=== PATIENT | female | born 1995 | race Caucasian/White ===

== ENCOUNTER 2017-12-02 19:45 | Outpatient (CLI) | payer OTHER ==
[2017-12-02 20:30] VITALS: BP 131/72; PULSE 70; RESP 16; TEMP 97.2
--- NOTE | 2017-12-03 11:28 | P.MSEPDOC ---
Presenting Problems - Arrival Data Date of Arrival on Unit: 12/02/17 Time of Arrival on Unit: 19:45 Mode of Transport: Ambulatory - Complaint OB-Reason for Admission/Chief Complaint: Decreased Movement Medical History - Information : 3 Para: 2 Term: 2 : 0 Abortions: Spontaneous or Elective: 0 Number of Living Children: 2 - Gestational Age Gestational Age by BASIA (wks/days): 33 Weeks and 0 Days - History Complications: Smoker Review of Systems - Review of Systems Constitutional: No problems Breast: No problems ENT: No problems Cardiovascular: No problems Respiratory: No problems Gastrointestinal: No problems Genitourinary: No problems Musculoskeletal: No problems Neurological: No problems Skin: No problems Vital Signs - Temperature Temperature: 97.2 F Temperature Source: Temporal Artery Scan - Pulse Right Pulse Rate: 70 Pulse Assessment Method: Pulse Oximetry - Respirations Respiratory Rate: 16 Oxygen Delivery Method: Room Air - Blood Pressure Right Arm Blood Pressure: 131/72 Blood Pressure Mean: 91 Blood Pressure Source: Automatic Cuff Medical Screen Scoring (Pre) - Cervical Exam Dilation: Exam Deferred Effacement: Exam Deferred Membranes: Intact - Uterine Contractions Frequency: N/A Duration: N/A Intensity: N/A - Maternal Vital Signs Maternal Temperature: N/A Maternal Blood Pressure: N/A Signs of Preeclampsia: N/A Maternal Respirations: N/A - Pain Assessment Pain Scale Used: Numeric (1 - 10) Pain Intensity: 0 Pain Management Goal: 0 Pain Behavior: Vocalization - Maternal Trauma Maternal Trauma: N/A - Assessment Baseline FHR: 125 Heart Rate - NICHD Category: Category I (Normal) = 0 NST: Reactive Position: N/A Station: N/A - Total Score Total Score (Pre): 0 - Level of Risk Level of Risk: Low (0-5) Physician Notification (Pre) - Physician Notified Physician Notified Date: 12/02/17 Physician Notified Time: 20:11 Physician/Practitioner Notifed:: Dr. Dennis Spoke With: Dr. Dennis New Order Received: Yes (Discharge home with instructions.) - Notification Comment Comment: Pt cleared for discharge home at this time with instructions. Pt to keep next appointment with Dr. Lock in office and to return with any concerns. Pt verbalizes understanding. Medical Screen Scoring (Post) - Cervical Exam Dilation: Exam Deferred Effacement: Exam Deferred Membranes: Intact - Uterine Contractions Frequency: N/A Duration: N/A Intensity: N/A - Maternal Vital Signs Maternal Temperature: N/A Maternal Blood Pressure: N/A Signs of Preeclampsia: N/A Maternal Respirations: N/A - Pain Assessment Pain Scale Used: Numeric (1 - 10) Pain Intensity: 0 Pain Management Goal: 0 Pain Behavior: Vocalization - Maternal Trauma Maternal Trauma: N/A - Assessment Heart Rate: 125 Heart Rate - NICHD Category: Category I (Normal) = 0 NST: Reactive Position: N/A Station: N/A - Total Score Total Score (Post): 0 - Post Treatment Level of Risk Post Treatment Level of Risk: Low (0-5) Physician Notification (Post) - Physician Notified Physician Notified Date: 12/02/17 Physician Notified Time: 20:11 Physician/Practitioner Notified:: Dr. Dennis Spoke With: Dr. Dennis New Order Received: Yes (Discharge home with instructions.) Disposition - Disposition OB Disposition: Discharge to home Discharge Date: 12/02/17 Discharge Time: 20:12 I agree with the RN Medical Screening Exam: Yes Risk & Benefit of care provided described in d/c instruction: Yes Diagnosis: DECREASED MOVEMENTS, THIRD TRIMESTER, FETUS 1
== END 2017-12-02 20:12 | disposition home or self-care (01) ==
LOC: FBPOP 19:45
PROVIDERS: ATTEND Obstetrics & Gynecology
DX: O36.8130 Decreased fetal movements, third trimester, not applicable or unspecified (principal); Z3A.33 33 weeks gestation of pregnancy
CPT/HCPCS: 59025; G0463; 99213

== ENCOUNTER 2018-01-13 05:35 | Inpatient (IN) | payer OTHER ==
[2018-01-13] MEDS ORDERED: CARBOPROST TROMETHAMINE 250 MCG/ML 1 ML AMP IM PRN (05:55)
[2018-01-13] MEDS ORDERED: LIDOCAINE 1% (PF) 10 MG/ML (30 ML SDV) SQ PRN (05:55)
[2018-01-13] MEDS ORDERED: METHYLERGONOVINE 0.2 MG/ML 1 ML AMP IM PRN (05:55)
[2018-01-13] MEDS ORDERED: TERBUTALINE 1 MG/ML VIAL SQ PRN (05:55)
[2018-01-13] MEDS ORDERED: OXYTOCIN 10 UNIT/ML 1 ML VIAL IM PRN (05:55)
[2018-01-13] MEDS ORDERED: LACTATED RINGERS 1,000 ML IV SCH (06:00)
[2018-01-13] MEDS ORDERED: OXYTOCIN 20 UNITS/1000 ML NS 1,000 ML IV SCH ×2 (06:00→09:00)
[2018-01-13 06:12] LABS: Basophils % (A) 0 %; Eosinophils # (A) 0.1 k/uL (0-0.7); Eosinophils % (A) 1 %; HCT 40.7 % (34.0-46.0); HGB 13.8 gm/dL (11.4-16.0); Lymphocytes # (A) 2.7 k/uL (1.0-4.8); Lymphocytes % (A) 27 %; MCH 31.5 pg (25.0-35.0); MCV 92.6 fL (80.0-100.0); Mean Platelet Volume 9.2; Monocytes # (A) 0.5 k/uL (0-1.0); Monocytes % (A) 5 %; Neutrophils # (A) 6.7 k/uL (1.3-7.7); Neutrophils % (A) 66 %; Platelet Count 129 k/uL (150-450); RBC 4.39 m/uL (3.80-5.40); RDW 13.2 % (11.5-15.5); WBC 10.2 k/uL (3.8-10.6)
[2018-01-13] MEDS: LACTATED RINGERS 1,000 ML IV SCH ×2 (06:27→07:12)
[2018-01-13] MEDS ORDERED: BUPIVACAINE (PF) 0.25% 30 ML VIAL ONE (06:31)
[2018-01-13] MEDS ORDERED: fentaNYL (PF) 50 MCG/ML 5 ML AMP ONE (06:31)
[2018-01-13] MEDS ORDERED: SODIUM CHLORIDE 0.9% 100 ML BAG ONE (06:31)
--- NOTE | 2018-01-13 07:10 | P.HPOB ---
History of Present Illness H&P Date: 01/13/18 Chief Complaint: Labor at 39 weeks This is a 22-year-old 3 para 2002 woman who has an estimated due date of 01/20/2018 based on LMP consistent with a 21 week ultrasound. She presents at 39-0/7 weeks gestation in spontaneous active labor. She's had an uncomplicated . On admission she is noted to be 6+ centimeters dilated. She denied leakage of fluid or vaginal bleeding. Obstetric history: Normal spontaneous vaginal deliveries at term in 2014 and 2011. Laboratory data: Group B strep negative, blood type A-, antibody screen negative , rubella immune, VDRL nonreactive, hepatitis B surface antigen negative, HIV negative Review of Systems All systems: negative Past Medical History Past Medical History: No Reported History History of Any Multi-Drug Resistant Organisms: None Reported Past Surgical History: No Surgical Hx Reported Past Anesthesia/Blood Transfusion Reactions: No Reported Reaction Past Psychological History: Anxiety Smoking Status: Current every day smoker Past Alcohol Use History: None Reported Past Drug Use History: None Reported - Past Family History Father Family Medical History: Cancer, Diabetes Mellitus Additional Family Medical History / Comment(s): bladder cancer Medications and Allergies Home Medications Medication Instructions Recorded Confirmed Type Pnv No.111/Iron/Folate/Dha 1 each PO DAILY 12/02/17 01/13/18 History [Nestabs One Softgel] Allergies Allergy/AdvReac Type Severity Reaction Status Date / Time No Known Allergies Allergy Verified 01/13/18 05:42 Exam - Vital Signs Vital signs: Vital Signs Temp Pulse Resp BP Pulse Ox 01/13/18 05:57 97.5 F L 91 18 128/72 98 01/13/18 05:42 97.5 F L 84 16 99 Intake and Output 01/12/18 01/13/18 01/13/18 22:59 06:59 14:59 Intake Total 1000 Balance 1000 Intake: IV 1000 Lactated Ringers 1,000 ml 1000 @ 999 mls/hr IV .Q1H1M [facility] Rx#:[id number] Other: # Voids 1 Weight 68.039 kg Targeted physical exam is performed. This is a visibly gravid, actively laboring female. She recently had an epidural anesthetic placed. On the abdomen is gravid with palpable contractions. On cervical exam she is 6 cm dilated, 90% effaced and the vertex is in the -2 station. Artificial rupture of membranes is undertaken and meconium-stained fluid is noted. heart tones show some decreased variability, no repetitive decelerations. Occasional accelerations. She is jack on irregularly every 2-5 minutes. Results Result Diagrams: 01/13/18 06:00 Abnormal Lab Results - Last 24 Hours (Table) 01/13/18 Range/Units 06:00 Plt Count 129 L (150-450) k/uL Assessment and Plan (1) 39 weeks gestation of Current Visit: Yes Status: Acute Code(s): Z3A.39 - 39 WEEKS GESTATION OF SNOMED Code(s): 89967836 (2) Rh negative, maternal Current Visit: Yes Status: Acute Code(s): O09.899 - SUPERVISION OF OTHER HIGH RISK PREGNANCIES, UNSP TRIMESTER; Z67.91 - UNSPECIFIED BLOOD TYPE, RH NEGATIVE SNOMED Code(s): 312451155 (3) Meconium in amniotic fluid Current Visit: Yes Status: Acute Code(s): P96.83 - MECONIUM STAINING SNOMED Code(s): 9482860 (4) Spontaneous onset of labor Current Visit: Yes Status: Acute Code(s): OQK7155 - SNOMED Code(s): 13919405 Plan: 22-year-old 3 para 2 woman who presents at 39-0/7 weeks gestation in spontaneous active labor. She has meconium-stained fluid. status is overall reassuring at this time. On she is group B strep negative and Rh-. Anticipate normal spontaneous vaginal delivery.
[2018-01-13] MEDS ORDERED: BUPIVACAINE (PF) 0.25% 25 ML, fentaNYL (PF) 200 MCG in SODIUM CHLORIDE 0.9% 71 ML EPIDURAL ONE (07:17)
[2018-01-13] MEDS ORDERED: SIMETHICONE 80 MG CHEWABLE PO PRN (08:51)
[2018-01-13] MEDS ORDERED: ACETAMINOPHEN TAB 325 MG TAB PO PRN (08:51)
[2018-01-13] MEDS ORDERED: diphenhydrAMINE 50 MG/ML 1 ML VIAL IVP PRN ×2 (08:51)
[2018-01-13] MEDS ORDERED: ZOLPIDEM 5 MG TAB PO PRN (08:51)
[2018-01-13] MEDS ORDERED: diphenhydrAMINE 50 MG CAP PO PRN (08:51)
[2018-01-13] MEDS ORDERED: diphenhydrAMINE 25 MG CAP PO PRN (08:51)
[2018-01-13] MEDS ORDERED: HYDROCORTISONE 2.5% RECTAL CREAM 30 GM TUBE RECTAL PRN (08:51)
[2018-01-13] MEDS ORDERED: WITCH HAZEL 1 EACH MED..PAD TOPICAL PRN (08:51)
[2018-01-13] MEDS ORDERED: BENZOCAINE/MENTHOL SPRAY 1 GM/SPRAY AEROSOL TOPICAL PRN (08:51)
[2018-01-13] MEDS ORDERED: LANOLIN CREAM 5 GM TUBE TOPICAL PRN (08:51)
--- NOTE | 2018-01-13 08:51 | P.PROBDLV ---
Vaginal Delivery Note - . Vaginal Delivery Note: Findings: Female in the left occiput anterior position with Apgars of 9 at 1 minute and 9 at 5 minutes weighing 8 lbs. 6 oz., 3790 g. First-degree perineal laceration. Meconium-stained fluid. Intact, three-vessel cord placenta with meconium staining of the membranes. EBL approximately 200 mL's. Delivery summary: This is a 22-year-old 3 para 2 woman who presented in spontaneous active labor at 39-0/7 weeks gestation. On admission she received an epidural anesthetic and had artificial rupture of membranes at which time meconium-stained fluid was noted. She had overall reassuring heart rate pattern throughout the first stage of labor. She had approximately 4 hour first stage of labor. She reached complete cervical dilation and pushed effectively. When she had pushed to she was repositioned, prepped and draped in the dorsal modified Jerrod position. She had an approximately 20 minute second stage of labor. With additional maternal effort the head crowned from the left occiput anterior position. The nose and mouth were bulb suctioned on the perineum. The anterior followed by the posterior shoulders were delivered without difficulty and the rest the infant was delivered onto the field. The infant was placed on the maternal abdomen where the cord was clamped and cut. Apgars were 9 at 1 minute and 9 at 5 minutes. Cord blood sample was taken for maternal Rh- status. An intact, three-vessel cord placenta was expressed after an approximately 4 minute third stage of labor. The placenta was noted to be meconium-stained. The perineum was inspected and a first-degree laceration was noted. This was infused with lidocaine and repaired with 3-0 Vicryl suture in the usual fashion. The uterus was massaged and was noted to be firm below the level of the umbilicus. All counts were correct. Both mother and were doing well post delivery in the room.
[2018-01-13] MEDS: IBUPROFEN 600 MG TAB PO PRN (19:11)
[2018-01-13] MEDS: SENNOSIDES-DOCUSATE SODIUM 1 EACH TAB PO SCH (20:05)
[2018-01-14] MEDS: IBUPROFEN 600 MG TAB PO PRN (06:47)
[2018-01-14 08:57] VITALS: BP 115/62; PULSE 95; RESP 16; TEMP 98.2
--- NOTE | 2018-01-14 09:41 | P.DS ---
Providers Date of admission: 01/13/18 05:43 Expected date of discharge: 01/14/18 Attending physician: Sunil Lock Primary care physician: Stated None - Discharge Diagnosis(es) (1) 39 weeks gestation of Current Visit: Yes Status: Acute (2) Rh negative, maternal Current Visit: Yes Status: Acute (3) Meconium in amniotic fluid Current Visit: Yes Status: Acute (4) Spontaneous onset of labor Current Visit: Yes Status: Acute (5) Normal spontaneous vaginal delivery Current Visit: Yes Status: Acute (6) Perineal laceration with delivery, first degree Current Visit: Yes Status: Acute Hospital Course: This is a 22-year-old 3 now para 3 woman who presented at 39-0/7 weeks gestation in spontaneous active labor. Following admission she received an epidural anesthetic. She went on to have a uncomplicated delivery of a liveborn female infant with Apgars of 9 at 1 minute and 9 at 5 minutes weighing 8 lbs. 6 oz. She did have meconium-stained fluid. Her course was unremarkable. By day #1 she was ambulating and voiding without difficulty, her lochia was decreasing and her physical exam was within normal limits. She was therefore discharged home with routine instructions for care and follow-up. She received Heath prior to discharge if indicated. Patient Condition at Discharge: Good Plan - Discharge Summary New Discharge Prescriptions: No Action Pnv No.111/Iron/Folate/Dha [Nestabs One Softgel] 1 each PO DAILY Discharge Medication List Pnv No.111/Iron/Folate/Dha [Nestabs One Softgel] 1 each PO DAILY 12/02/17 [ History] Follow up Appointment(s)/Referral(s): Sunil Lock MD [STAFF PHYSICIAN] - 6 Weeks Activity/Diet/Wound Care/Special Instructions: Follow-up in the office in 6 weeks . Call with any concerning signs or symptoms including heavy vaginal bleeding, severe abdominal pain, fever greater than 101, swelling or redness of the lower extremities, foul vaginal discharge, or signs of depression. Nothing in the vagina for 6 weeks after delivery, specifically no intercourse.
[2018-01-14] MEDS: SENNOSIDES-DOCUSATE SODIUM 1 EACH TAB PO SCH (16:45)
== END 2018-01-14 11:00 | disposition home or self-care (01) | DRG 775 ==
LOC: FBPOP 05:35 → 4FBP 05:43
PROVIDERS: ADMIT Obstetrics & Gynecology; ATTEND Obstetrics & Gynecology
PROC: 10E0XZZ Delivery of Products of Conception, External Approach (ICD-10-PCS; principal; 2018-01-13)
PROC: 10907ZC Drainage of Amniotic Fluid, Therapeutic from Products of Conception, Via Natural or Artificial Opening (ICD-10-PCS; principal; 2018-01-13)
PROC: 0HQ9XZZ Repair Perineum Skin, External Approach (ICD-10-PCS; principal; 2018-01-13)
PROC: 3E0R3NZ Introduction of Analgesics, Hypnotics, Sedatives into Spinal Canal, Percutaneous Approach (ICD-10-PCS; principal; 2018-01-13)
PROC: 00HU33Z Insertion of Infusion Device into Spinal Canal, Percutaneous Approach (ICD-10-PCS; principal; 2018-01-13)
DX: O99.334 Smoking (tobacco) complicating childbirth (principal); O36.0930 Maternal care for other rhesus isoimmunization, third trimester, not applicable or unspecified; Z37.0 Single live birth; F17.200 Nicotine dependence, unspecified, uncomplicated; O77.0 Labor and delivery complicated by meconium in amniotic fluid; O70.0 First degree perineal laceration during delivery; Z3A.39 39 weeks gestation of pregnancy
CPT/HCPCS: 85025; 88307; 99213

== ENCOUNTER → 2019-01-04 | Outpatient (CLI) | payer OTHER ==
--- NOTE | 2019-01-04 14:58 | XR ---
EXAMINATION TYPE: XR hand limited LT DATE OF EXAM: 01/04/2019 COMPARISON: None HISTORY: Pain first metacarpal TECHNIQUE: Left hand is examined in 2 projections. FINDINGS: No acute fractures are evident. Soft tissues are normal. Joint spaces are preserved. Follow-up exam can be performed 7-10 days from acute trauma for continued pain. IMPRESSION: 1. Normal 2 view left hand.
== END | disposition home or self-care (01) ==
LOC: RADXRMAIN 10:31
PROVIDERS: ATTEND Physician Assistant
DX: M79.642 Pain in left hand (principal)

== ENCOUNTER → 2020-05-13 | Outpatient (CLI) | payer OTHER ==
--- NOTE | 2020-05-13 15:56 | XR ---
EXAMINATION TYPE: XR lumbar spine 2 or 3V DATE OF EXAM: 05/13/2020 Comparison: None Clinical History: 24-year-old female left leg weakness, M62.81 Findings: There is rightward truncal shift. There is a left L5 hemisacralization with a degenerative assimilati on joint with the sacrum. Vertebral body heights are preserved and alignment is maintained. Mild face t arthropathy suggested in the lower lumbar spine. Disc interspaces are maintained. Impression: 1. 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 Note that this can become a source of annika n for the patient and can also contribute to accelerated degenerative disc disease above at L4-L5. 2. Mild facet arthropathy lower lumbar spine.
== END | disposition home or self-care (01) ==
LOC: RAD 14:53
PROVIDERS: ATTEND Family Medicine
DX: M51.36 Other intervertebral disc degeneration, lumbar region (principal); M46.96 Unspecified inflammatory spondylopathy, lumbar region; M62.81 Muscle weakness (generalized)
CPT/HCPCS: 72100

== ENCOUNTER → 2020-11-02 | Outpatient (CLI) | payer OTHER ==
--- NOTE | 2020-11-02 08:59 | US ---
EXAMINATION TYPE: US abdomen complete DATE OF EXAM: 11/02/2020 COMPARISON: NONE CLINICAL HISTORY: R10.12 left upper quadrant. LUQ pain that shoots to chest, ongoing for awhile EXAM MEASUREMENTS: Liver Length: 16.7 cm Gallbladder Wall: 0.2 cm CBD: 0.4 cm Spleen: 11.6 cm Right Kidney: 12.0 x 4.5 x 3.6 cm Left Kidney: 10.4 x 4.3 x 4.3 cm Pancreas: wnl Liver: wnl Gallbladder: wnl Evidence for sonographic Olivares's sign: no CBD: wnl Spleen: wnl Right Kidney: wnl Left Kidney: wnl Upper IVC: wnl Abd Aorta: wnl The liver is homogenous. The intrahepatic portion of the IVC and proximal abdominal aorta are within normal limits. There is no evidence of cholelithiasis. Common bile duct is unremarkable. The visu alized portions of the pancreas are homogenous. The spleen is unremarkable. Kidneys are symmetric a nd free of hydronephrosis. No renal lesions are seen. IMPRESSION: No distinct abnormality seen.
== END | disposition home or self-care (01) ==
LOC: RADUSWWP 08:03
PROVIDERS: ATTEND Family Medicine
DX: R10.12 Left upper quadrant pain (principal)
CPT/HCPCS: 76700